=== PATIENT | male | born 1940 | race Hispanic/Latino ===

== ENCOUNTER 2017-10-25 12:49 | Outpatient (CLI) | payer MEDICARE, OTHER ==
--- NOTE | 2017-10-25 14:53 | XRay Report ---
KUB: 10/25/17 CLINICAL: Abdominal pain. FINDINGS: Normal bowel gas pattern with moderate stool throughout the colon. Mild distention of the colon. No small bowel distention. Mild distention of the stomach with air. No mass. A probable tiny phlebolith in the left hemipelvis is slightly more lateral than the expected course of the distal left ureter. Brachytherapy seeds in the prostate. 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 Increased density of the femoral heads suggesting possible avascular necrosis. However, no fracture. Moderate osteoarthritis of the hips. IMPRESSION: Negative abdomen.
== END 2017-10-25 12:50 | disposition home or self-care (01) ==
LOC: SPVIMAG 12:49
PROVIDERS: ATTEND Internal Medicine
DX: K31.89 Other diseases of stomach and duodenum (principal); R10.9 Unspecified abdominal pain; I87.8 Other specified disorders of veins; M16.0 Bilateral primary osteoarthritis of hip; M47.896 Other spondylosis, lumbar region
CPT/HCPCS: 74018